=== PATIENT | female | born 1990 | race Caucasian/White ===

== ENCOUNTER 2020-01-14 00:24 | Emergency (ER) | payer MEDICAID, SELFPAY ==
--- NOTE | 2020-01-14 00:26 | XRR_ITS ---
PROCEDURE INFORMATION: Exam: XR Right Wrist Exam date and time: 01/14/2020 1:22 AM Age: 29 years old Clinical indication: Pain; Wrist; Right; Additional info: Pain x 2 weeks, no known injury TECHNIQUE: Imaging protocol: XR Right wrist. Views: 3 or more views. COMPARISON: No relevant prior studies available. FINDINGS: Bones/joints: No fracture. No dislocation. No joint space narrowing or widening. There is negative ulnar variance. Soft tissues: There is nonspecific soft tissue swelling. XR/XR wrist RT min 3V* [id number] IMPRESSION: Nonspecific soft tissue swelling.
[2020-01-14 00:31] VITALS: BP 129/96; PULSE 106; RESP 18; TEMP 36; O2SAT 99
--- NOTE | 2020-01-14 01:24 | W.ED.EXTPRO ---
HPI - Extremity Problem General: Chief complaint: Extremity Injury, Upper Stated complaint: rt wrist pain Time Seen by Provider: 01/14/20 01:20 History of Present Illness: HPI Narrative: Patient complains about right wrist pain x2 weeks been worse last couple days. Says she is been wearing a thumb spica splint and not really help. Said only activity she does a lot of is writing and drawing and possibly that could have caused it to get inflamed but she denies any injury. MD Complaint: joint pain Onset (ago): week(s) Pain Consistency: constant Location: right and upper extremity Severity scale (1-10): 7 Quality: aching Radiation: none Relieving factors: nothing Exacerbating factors: range of motion Associated symptoms: Reports no associated symptoms; Deny chest pain, fever(s) or rash Review of Systems Narrative: Patient inquiring about narcotic pain medicine help with wrist pain Const: Denies: fever(s), chills or body aches Eyes: Denies: change in vision or blurry vision ENMT: Denies: throat pain or nasal congestion Card: Denies: chest pain or dyspnea on exertion Resp: Denies: dyspnea, productive cough or non-productive cough GI: Denies: abdominal pain, nausea or vomiting Musc: Reports: joint pain (Right wrist) and limited range of motion; Denies: extremity pain Skin/Breast: Denies: rash Neuro: Denies: headache(s) Psych: Denies: anxiety or depression Kuldip/Lymph: Denies: easy bruising Physical Exam Const: COMMON NORMALS: no acute distress and patient oriented x3 GENERAL APPEARANCE: cooperative Extremity: RIGHT UPPER EXTREMITY: Yes wrist (Tender to touch Kai maneuver positive mild swelling positive distal) Neuro: COMMON NORMALS: patient oriented x3 Course Vital Signs: Vital signs: Vital Signs Temperature 96.8 F L 01/14/20 00:31 Pulse Rate 106 H 01/14/20 00:31 Respiratory Rate 18 01/14/20 00:31 Blood Pressure 129/96 01/14/20 00:31 Pulse Oximetry 99 01/14/20 00:31 Discharge Plan Discharge Patient Disposition: Home Clinical Impression: Right wrist tendinitis Condition: Stable Prescriptions: New Medrol (Andre) 4 mg tablets,dose pack See Rx Instructions .ROUTE .COMPLEX Qty: 21 RF: 0 Voltaren 1 % gel 2 gm TOPICAL QID Qty: 100 RF: 0 Discharge Orders: Discharge Order (Routine); Ordered 01/14/20 Ordered By: Cristopher Omer Referrals: [place], CHROMIUM PLATER-C [Primary Care Provider] - Discharge Diet: Usual diet Discharge Activity: Increase activity as tolerated Patient Instructions: De Quervain Disease (ED), Tenosynovitis (ED) Activity Restrictions/Additional Instructions: Take medicine as directed wear your splint that you have at home. Can apply ice to area. Follow-up with your care provider that you normally see for any nonimprovement of symptoms Coding Level of Care Code ED Logistics Program Manager for Chg [facility]wd Exam Expanded Problem Focused
[2020-01-14 02:54] VITALS: BP 128/74; PULSE 77; RESP 16; O2SAT 99
[2020-01-14] MEDS: ketorolac 60 mg/2 mL INJ IM (02:54)
[2020-01-14] MEDS: methylPREDNISolone (DEPO) 80 MG/ML INJ 1 mL IM (02:54)
== END 2020-01-14 02:56 | disposition home or self-care (01) ==
PROVIDERS: Emergency Provider Nurse Practitioner Family; PCP Nurse Practitioner
DX: M77.9 Enthesopathy, unspecified (principal)
CPT/HCPCS: 12345; 73110; 96372; 99281; 99283; J1040; J1885

== ENCOUNTER 2020-04-05 11:02 | Emergency (ER) | payer MEDICAID, SELFPAY ==
[2020-04-05 11:36] VITALS: BP 119/88; PULSE 99; RESP 14; TEMP 36.9; O2SAT 100; BMI 23.0
== END 2020-04-05 12:23 | disposition left against medical advice (07) ==
PROVIDERS: Emergency Provider Family Medicine; PCP Nurse Practitioner
DX: Z53.21 Procedure and treatment not carried out due to patient leaving prior to being seen by health care provider (principal)
CPT/HCPCS: 99281

== ENCOUNTER 2020-04-08 11:18 | Emergency (ER) | payer MEDICAID, SELFPAY ==
[2020-04-08 11:28] VITALS: BP 128/91; PULSE 125; RESP 18; TEMP 36.3; O2SAT 99; BMI 23.9
--- NOTE | 2020-04-08 11:46 | ED_ITS ---
HPI - Female Genitourinary General: Chief complaint: Urogenital-Female Stated complaint: POSS STD Time Seen by Provider: 04/08/20 11:46 Source: patient Mode of arrival: ambulatory Limitations: no limitations History of Present Illness: HPI Narrative: Patient comes in for treatment for STI. Patient's boyfriend tested positive for gonorrhea or chlamydia. Patient is also concerned about a sore throat and some nasal drainage. Patient does have positive exposure to COVID-19. Patient denies any urinary symptoms, or vaginal discharge. Review of Systems General: Reports: 10 or more systems reviewed and unremarkable except in HPI and below ENMT: Reports: throat pain Physical Exam Const: COMMON NORMALS: no acute distress and patient oriented x3 GENERAL APPEARANCE: cooperative HENMT: COMMON NORMALS: normocephalic and Normal external nose present HEAD & SCALP: normal to inspection and normocephalic NOSE: Normal external nose present THROAT: posterior oropharynx abnormal cobblestoning and erythema and postnasal drainage Eye: GENERAL EYE: appearance normal, both eyes and all related structures Neck/C-Spine: COMMON NORMALS: full ROM Lymph: LYMPHATIC: no lymphadenopathy noted Chest: COMMONS NORMALS: normal inspection of the chest Resp: COMMON NORMALS: normal respiratory effort EFFORT & INSPECTION: Yes able to speak in complete sentences Cardio: COMMON NORMALS: regular rate and regular rhythm RATE: regular rate RHYTHM: regular rhythm GI: COMMON NORMALS: non-tender : COMMON NORMALS: Yes no CVA tenderness BLADDER/KIDNEY EXAM: Yes no CVA tenderness Back/Pelvis: COMMON NORMALS: no CVA tenderness and thoracic and lumbar spine normal to inspection Extremity: COMMON NORMALS: normal to inspection Neuro: COMMON NORMALS: patient oriented x3 and moves all extremities Psych: COMMON NORMALS: mental status grossly normal and cooperative Skin: COMMON NORMALS: no rashes or lesions noted GENERAL SKIN EXAM: no rashes or lesions noted Course Vital Signs: Vital signs: Vital Signs Temperature 97.3 F L 04/08/20 11:28 Pulse Rate 125 H 04/08/20 11:28 Respiratory Rate 18 04/08/20 11:28 Blood Pressure 128/91 04/08/20 11:28 Pulse Oximetry 99 04/08/20 11:28 MDM - Female MDM Narrative: Medical decision making narrative: Patient comes in for sore throat and exposure to chlamydia or gonorrhea. Patient denies any symptoms. Patient reports that her boyfriend tested positive for it. Differential diagnosis includes STI, cervicitis, BV, strep pharyngitis. Strep test was negative. We went ahead and treated for gonorrhea chlamydia and sent to lab for gonorrhea and chlamydia. Patient was recommended to follow-up with primary care for retesting if test results come back positive. Patient reported understanding. Lab Data: Labs: Lab Results 04/08/20 Range/Units 13:08 Group A Strep Rapi d Negative (Negative) Discharge Plan Discharge Clinical Impression: Exposure to chlamydia Pharyngitis Qualifiers: Pharyngitis/tonsillitis etiology: unspecified etiology Qualified Code(s): J02.9 - Acute pharyngitis, unspecified Condition: Stable Prescriptions: No Action Medrol (Andre) 4 mg tablets,dose pack See Rx Instructions .ROUTE .COMPLEX Qty: 21 RF: 0 Voltaren 1 % gel 2 gm TOPICAL QID Qty: 100 RF: 0 Referrals: [place], HEDDLE MACHINE OPERATOR-C [Primary Care Provider] - Discharge Diet: Usual diet Discharge Activity: Increase activity as tolerated Patient Instructions: Pelvic Inflammatory Disease (ED) Activity Restrictions/Additional Instructions: Drink plenty of water. Follow-up with primary care. If gonorrhea and chlamydia test comes back positive I would recommend reevaluation and retesting to ensure eradication of infection. Return to emergency department for new concerns. Coding Level of Care Code ED Operations Project Manager for Tomas [employer] Exam Comprehensive
[2020-04-08] MEDS: azithromycin 250 mg Tablet 1000 MG PO (13:11)
[2020-04-08] MEDS: cefTRIAXone 250 mg SDV IM (13:12)
[2020-04-08 13:41] LABS: Rapid Strep A Test Negative (Negative)
== END 2020-04-08 14:14 | disposition home or self-care (01) ==
PROVIDERS: Emergency Provider Nurse Practitioner Family; PCP Nurse Practitioner
DX: Z20.2 Contact with and (suspected) exposure to infections with a predominantly sexual mode of transmission (principal); J02.9 Acute pharyngitis, unspecified
CPT/HCPCS: 12345; 87081; 87491; 87591; 87880; 96372; 99281; 99283; J0696; Q0144

== ENCOUNTER → 2020-12-03 15:44 | Outpatient (BNVA) | payer MEDICAID, SELFPAY | PROVIDERS: PCP Nurse Practitioner; Visit Provider Nurse Practitioner | DX: Z20.822 Contact with and (suspected) exposure to COVID-19 (principal) | CPT/HCPCS: 87635 ==

== ENCOUNTER → 2020-12-21 10:29 | Outpatient (BNVA) | payer MEDICAID, SELFPAY | PROVIDERS: PCP Nurse Practitioner; Visit Provider Nurse Practitioner Family | DX: U07.1 COVID-19 (principal); J32.9 Chronic sinusitis, unspecified | CPT/HCPCS: 87635 ==